=== PATIENT | female | born 1960 | race Caucasian/White ===

== ENCOUNTER 2018-06-02 09:19 | Emergency (ER) | payer OTHER ==
[~2018-06-02] VITALS: Ht 175.3 cm; Wt 74.8 kg
[2018-06-02 09:24] VITALS: BP 175/50
[2018-06-02] MEDS ORDERED: METHOCARBAMOL 500 MG TAB PO ONE (09:45)
[2018-06-02] MEDS ORDERED: KETOROLAC TROMETH 60MG/2ML VIAL IM ONE (09:45)
== END 2018-06-02 11:20 | disposition home or self-care (01) ==
LOC: ER 09:19 → EDBD 09:19 → ER 11:20
DX: S20.221A Contusion of right back wall of thorax, initial encounter (principal); J44.9 Chronic obstructive pulmonary disease, unspecified; E11.9 Type 2 diabetes mellitus without complications; I10 Essential (primary) hypertension; W22.8XXA Striking against or struck by other objects, initial encounter; Y93.89 Activity, other specified; Y99.8 Other external cause status; Y92.89 Other specified places as the place of occurrence of the external cause
CPT/HCPCS: 72100; 72220; 96372; 99284; J1885

== ENCOUNTER 2025-03-25 09:52 | Day surgery (SDC) | payer OTHER, MEDICAID ==
[2025-03-24 10:48] LABS: Hematocrit 42.2 % (36.0-46.0); Hemoglobin 14.3 g/dL (12.2-16.2); Mean Corpuscular Hemoglobin 29.5 pg (28.0-32.0); Mean Corpuscular Volume 87.0 fL (80.0-100.0); Nucleated Red Blood Cells % 0.1 %
[2025-03-24 11:02] LABS: INR 0.99 (0.9-1.15); Partial Thromboplastin Time 23.4 SEC (24.5-34.5); Prothrombin Time 10.5 sec (9.3-11.8)
[2025-03-24 11:07] LABS: Urine Protein, UAD TRACE (Negative)
[2025-03-24 11:15] LABS: Alanine Aminotransferase 14 U/L (7-40); Albumin 4.3 g/dL (3.2-4.8); Alkaline Phosphatase 84 U/L (46-116); Anion Gap 8 (5-15); BUN/Creatinine Ratio 18.8 (10.0-20.0); Bilirubin, Total 0.3 mg/dL (0.2-1.0); Blood Urea Nitrogen 18 mg/dL (9-23); Calcium 9.2 mg/dL (8.7-10.4); Carbon Dioxide 28 mmol/L (20-31); Chloride 104 mmol/L (98-107); Potassium 4.4 mmol/L (3.5-5.1); Sodium 140 mmol/L (136-145); Total Protein 6.3 g/dL (5.7-8.2)
[2025-03-24 11:16] LABS: Glucose 244 mg/dL (74-106)
[~2025-03-25] VITALS: Ht 175.3 cm; Wt 74.8 kg
[2025-03-25] MEDS ORDERED: PROPOFOL 10 MG/ML 20 ML IV ONE (09:53)
[2025-03-25] MEDS ORDERED: LIDOCAINE 2% (LOCAL ANESTH.) PF 5ml SDV ONE (10:45)
[2025-03-25] MEDS ORDERED: ONDANSETRON HCL 4 MG/2 ML VIAL ONE (10:45)
[2025-03-25] MEDS ORDERED: METOCLOPRAMIDE HCL 5MG/ml INJ 2ml VIAL ONE (10:45)
[2025-03-25] MEDS ORDERED: MIDAZOLAM HCL 2MG/2ML 2ml VIAL (1mg/ml) ONE (10:45)
[2025-03-25] MEDS ORDERED: fentaNYL CITRATE 100 MCG/2 ML VL ONE (10:46)
[2025-03-25] MEDS ORDERED: hydrALAZINE HCL 20 MG/ML VL IV PRN ×2 (11:00→14:15)
[2025-03-25] MEDS ORDERED: ONDANSETRON HCL 4 MG/2 ML VIAL IV ONE ×2 (11:00→14:15)
--- NOTE | 2025-03-25 11:40 | DVHOP2 ---
Operative Report - 2 Report Details Date: 03/25/25 Preop Diagnosis: Left olecranon fracture Postop Diagnosis: Left olecranon fracture Surgeon: Aidan Reed MD [employer]phalt Surface Heater Operator: Howard SAM Anesthesiologist: MARIAH Anesthesia: General Implant: Arthrex Olecranon plate Consent: The patient was informed of the risks and benefits of the procedure. These include but are not limited to complications of anesthesia, postoperative infection, incomplete relief of symptoms, recurrence of symptoms, damage to blood vessels, nerves and tendons, deep venous thrombosis, pulmonary embolism and possible need for repeat surgery in the future. Estimated Blood Loss: 5 cc Indications for Surgery: displaced left olecranon fracture Name of Procedure Performed 1. Open reduction internal fixation of left olecranon fracture; 2. Intraop Fluoroscopy Procedure Details Procedure Details: The patient was brought to the operating room, placed supine on the operating table. After induction of general anesthesia and placement of a regional block, a well-padded non-sterile tourniquet was applied to the upper arm. The operative extremity was prepped and draped in the usual sterile fashion. The arm was positioned across the chest on a sterile hand table. A longitudinal posterior incision was made centered over the olecranon. Dissection was carried down through subcutaneous tissue, and full-thickness skin flaps were developed. Care was taken to identify and protect the ulnar nerve, which was visualized and retracted throughout the procedure. The fracture site was exposed. Hematoma and interposed soft tissue were de brided. The fracture was reduced anatomically under direct visualization and provisionally stabilized with K-wires and/or bone clamps. Reduction was confirmed fluoroscopically and visually. A pre-contoured olecranon plate (e.g., low-profile locking compression plate) was selected and applied to the posterior aspect of the ulna. The plate was secured with cortical and locking screws as appropriate. Final fluoroscopic imaging confirmed anatomic reduction and appropriate hardware placement. The wound was copiously irrigated with normal saline. Hemostasis was achieved. The ulnar nerve was left in its anatomic position and not transposed. The fascia and subcutaneous layers were closed with absorbable sutures. The skin was closed with kassidy. A sterile dressing was applied. A posterior splint was applied with the elbow in approximately 6070 degrees of flexion. Condition Good Disposition Home AIDAN REED MD Mar 25, 2025 11:40
[2025-03-25] MEDS ORDERED: HYDROmorphone HCL 2 MG/ML VL/or syr ONE (11:59)
[2025-03-25] MEDS ORDERED: KETOROLAC TROMETH 30 MG/ML 1ML VIAL ONE (11:59)
[2025-03-25] MEDS: LIDOCAINE 1% HCL (LOCAL ANESTH.) INJ 20ML MDV ONE (12:27)
[2025-03-25] MEDS: BUPIVACAINE HCL 0.25% P/F 10 ML VIAL ONE (12:27)
[2025-03-25 13:31] VITALS: PULSE 95; RESP 10; TEMP 97; O2SAT 95
[2025-03-25] MEDS: ACETAMINOPHEN IV 1000 MG/100ML (10MG/ML) IV ONE (13:43)
--- NOTE | 2025-03-25 13:44 | DVH ---
FLUOROSCOPY TIME: 9.2 seconds TECHNIQUE: Intraoperative radiographs of the left elbow were obtained. COMPARISON: None FINDINGS: Refer to intraoperative report for further evaluation. IMPRESSION: Refer to intraoperative report for further evaluation.
[2025-03-25] MEDS ORDERED: HYDROmorphone HCL 2 MG/ML VL/or syr IV PRN (14:15)
[2025-03-25] MEDS: HYDROmorphone HCL 2 MG/ML VL/or syr IV PRN (14:18)
--- NOTE | 2025-03-25 14:34 | DVH ---
EXAM: XY L ELBOW 2 VIEW XRAY HISTORY: LEFT ELBOW ORIF COMPARISON: For reasons unknown, CT scan of the left elbow dated 03/21/2025 and left elbow radiograph s dated 03/21/2025 were not made available on the PACS system for viewing. TECHNIQUE: 7 fluoroscopic spot views of the left elbow were performed. Fluoro time 9.2 seconds, cumul ative dose [id number] mGym2. FINDINGS/IMPRESSION: Interval postoperative changes plate and screw fixation of the left proximal ulna, without evidence o f hardware failure or complication at this time.
[2025-03-25 15:30] VITALS: BP 149/97
[2025-03-25] MEDS: ALBUTEROL SULF 2.5 MG/0.5ML(0.5%) NEB SOLN ONE (16:40)
[2025-03-25] MEDS: ALBUTEROL SULF 2.5 MG/0.5ML(0.5%) NEB SOLN NEB STA (16:42)
[2025-03-25 16:45] VITALS: O2SAT 95
[2025-03-25 16:46] VITALS: PULSE 83; RESP 16; O2SAT 95
[2025-03-25 16:47] VITALS: PULSE 81; RESP 16; O2SAT 94
[2025-03-25] MEDS: KETOROLAC TROMETH 30 MG/ML 1ML VIAL IV ONE (16:50)
== END 2025-03-25 17:35 | disposition home or self-care (01) ==
LOC: SUR 09:52
PROVIDERS: ATTEND Orthopaedic Surgery Adult Reconstructive Orthopaedic Surgery
DX: S52.022A Displaced fracture of olecranon process without intraarticular extension of left ulna, initial encounter for closed fracture (principal); I10 Essential (primary) hypertension; E11.9 Type 2 diabetes mellitus without complications; F41.9 Anxiety disorder, unspecified; F32.A Depression, unspecified; J44.9 Chronic obstructive pulmonary disease, unspecified; Z87.891 Personal history of nicotine dependence; Z88.0 Allergy status to penicillin; Z88.8 Allergy status to other drugs, medicaments and biological substances; E66.3 Overweight; W19.XXXA Unspecified fall, initial encounter; Y93.89 Activity, other specified; Y92.89 Other specified places as the place of occurrence of the external cause; Y99.8 Other external cause status
CPT/HCPCS: 24685; 36415; 73070; 76000; 80053; 81001; 82962; 85025; 85610; 85730; C1769; J1100; J1171; J1885; J2003; J2250; J2405; J2704; J2765; J3010; J3490; J0131